=== PATIENT | male | born 1980 | race Hispanic/Latino ===

== ENCOUNTER 2018-04-18 20:20 | Emergency (ER) | payer OTHER ==
[~2018-04-18] VITALS: Ht 167.6 cm; Wt 66.8 kg
[2018-04-18 20:48] VITALS: BP 127/85
== END 2018-04-18 20:48 | disposition home or self-care (01) | DRG 605 ==
LOC: ED 20:20
DX: S71.111A Laceration without foreign body, right thigh, initial encounter (principal); W45.0XXA Nail entering through skin, initial encounter; Y93.89 Activity, other specified; Y92.89 Other specified places as the place of occurrence of the external cause; Y99.0 Civilian activity done for income or pay